=== PATIENT | male | born 1940 | race Caucasian/White ===

== ENCOUNTER 2018-03-03 06:29 | Inpatient (IN) | payer MEDICARE, SELFPAY ==
[2018-02-26 10:58] VITALS: BMI 25.1
[2018-03-03] VITALS (28 sets, daily range): BP systolic 107–199; BP diastolic 65–103; PULSE 80–98; RESP 10–20; TEMP 35.7–37.4; O2SAT 93–100; BMI 25.1
[2018-03-03] MEDS: LACTATED RINGERS 1,000 ML 42 ML IV ×3 (07:36→13:28)
--- NOTE | 2018-03-03 07:41 | P.HP_ITS ---
History of Present Illness Date Patient Seen: 03/03/18 Time Patient Seen: 07:35 Chief complaint: [id number] Narrative: 77-year-old male with mild pain in the back but severe pain primarily running down the left leg. It goes down the posterolateral leg and wraps around to the anterior mast to the ankle. He can walk 100 yd maximum. He also has weak in the left leg. The pain is severe and limits his ADLs. He has been through physical therapy, acupuncture, massage, chiropractic. An epidural injection helps some with the right leg pain temporarily but did not help the left at all. He has a history of 4 laminectomies in the past, most recently in 2011. Patient History Medical History Anxiety (Acute) Asthma (Acute) Diabetes (Acute) Diverticulosis (Acute) Meniere disease (Acute) Pneumonia (Acute) Testicular cancer (Acute) Surgical History History of major abdominal surgery (Acute) Hx of cholecystectomy (Acute) Hx of laminectomy (Acute) Hx of splenectomy (Acute) S/P cervical spinal fusion (Acute) Family & Social History Social History: household members spouse Prior Living Arrangements House Safety & Behavioral: Feels Safe in Current Yes Environment Suicidal Ideation Description None Suicide Plan Description No Plan Tobacco & Substance use: Tobacco type cigarettes Smoking Status Former smoker Smoking packs per day 1 alcohol intake current alcohol intake frequency 0-2 drinks per day Substance Use Type marijuana Meds Home Medications Medication Instructions Recorded Confirmed Type insulin detemir U-100 [Levemir 26 unit SUB-Q QAM #0 06/16/13 03/03/18 History FlexTouch U-100 Insuln] metformin [Glucophage XR] 500 mg PO TID #0 tab 06/16/13 03/03/18 History testosterone [AndroGel] 1.62 % TOPICAL Q DAY #0 06/16/13 02/26/18 History venlafaxine [Effexor XR] 75 mg PO QAM #0 cap 06/16/13 03/03/18 History allopurinol 100 mg PO DAILY 02/26/18 03/03/18 History ascorbic acid (vitamin C) [Vitamin 500 mg PO DAILY 02/26/18 03/03/18 History C] aspirin 81 mg PO DAILY 02/26/18 03/03/18 History colchicine 0.6 mg PO DAILY PRN 02/26/18 03/03/18 History ferrous sulfate [Iron (ferrous 325 mg PO DAILY 02/26/18 03/03/18 History sulfate)] insulin detemir U-100 [Levemir 36 unit SUB-Q QPM 02/26/18 03/03/18 History FlexTouch U-100 Insuln] insulin lispro [Humalog KwikPen 16 unit SUB-Q TID 02/26/18 03/03/18 History Insulin] lisinopril 10 mg PO DAILY 02/26/18 03/03/18 History oxycodone-acetaminophen [Percocet] 1 tab PO Q4-6H PRN 02/26/18 02/26/18 History trazodone 25 mg PO BEDTIME 02/26/18 03/03/18 History Allergies Allergy/AdvReac Type Severity Reaction Status Date / Time latex Allergy Severe Blister Verified 03/03/18 07:25 insulin glargine Allergy Intermediate Hives Verified 03/03/18 07:25 [From Lantus U-100 Insulin] lorazepam [LORAZEPAM] AdvReac Severe HULLCINATIONS Verified 03/03/18 07:25 I BROKE OUT OF A HOSPITAL ONCE ON IT Review of Systems Cardiovascular Cardiovascular: Denies chest pain Respiratory Respiratory: Denies cough Exam Vital Signs (past 8 hours): Vital Signs - 8 hr 3 03/03/18 07:29 Temperature 97.4 F L Pulse Rate 80 Respiratory Rate 16 Blood Pressure 186/77 H Pulse Oximetry 98 Pulse Oximetry 98 Oxygen Delivery Method Room Air Const Orientation: alert and oriented x3 Resp Auscultation: clear to auscultation bilaterally Cardio Rhythm: regular rhythm Back/Spine/Pelvis Other: 5/5 motor both lower extremities except 4/5 left anterior tibialis and EHL. Well healed previous incisions. Positive straight leg raise maneuver on the left. Tender left gluteals. Objective Imaging lumbar CT: My impression: From 12/18/17. Degenerative changes throughout the lumbar spine. Mild central stenosis L2-3. L3-4 severe central stenosis with moderate bilateral foraminal narrowing. L4-5 previous right-sided laminotomy, moderate to severe central stenosis, severe right and moderate left foraminal stenosis. L5-S1 previous right-sided laminotomy. Calcification of the posterior disc wall. Moderate central stenosis, severe bilateral foraminal stenosis. Assessment & Plan (1) Lumbar stenosis: Problem details: He has failed conservative management and is being admitted for surgical intervention. This is going to be a L3-4 laminectomy with revision laminectomies at L4-5 and L5-S1. This also will be an instrumented anterior/ posterior fusion with bone graft from L3 through S1 with XLIF at L3-5 and TLIF at L5S1. All questions have been answered and we will plan on surgery today. He is NPO. Current visit: Yes Status: Acute (2) History of lumbar laminectomy: Current visit: Yes Status: Acute
[2018-03-03] MEDS: CEFAZOLIN 2 GM/100 ML FROZ.PIGGY IV ×3 (07:47→19:18)
--- NOTE | 2018-03-03 08:00 | DI.RAD.S_ITS ---
PROCEDURE: XR LUMBAR SPINE 2-3V INDICATIONS: L3-4, L4-5 XLIF, L5-S1 TLIF TECHNIQUE: 2 views of the lumbar spine were acquired. COMPARISON: [facility], CR, XR LUMBAR SPINE FLEXION EXTENSION, 07/24/2017, 10:25. FINDINGS: Bones: AP and lateral intraoperative images were obtained showing evidence of discectomy at L3-4, L4-5 and L5-S1 with posterior fusion including transpedicular screws and vertical connecting rods bilaterally. Soft tissues: Numerous surgical clips overlies the abdomen. Overlying bowel gas pattern is normal. No suspicious soft tissue calcifications. IMPRESSION: Intraoperative documentation of multilevel discectomy and posterior fusion L3-S1. Dictated by: Bolivar Jc M.D. on 03/04/2018 at 8:30 Approved by: Bolivar Jc M.D. on 03/04/2018 at 8:32
--- NOTE | 2018-03-03 08:38 | SUR.OPER ---
Right lateral on padded OR table. Head on pillow, gel axillary roll, pillow to support left arm. Legs flexed, pillows between legs, gel pad under down leg and ankle. Multiple passes of 3 inch cloth tape across shoulder, hip, upper and lower legs to secure patient on OR table. THEN: Prone on spine table, head in foam head support, padded chest and pelvic supports, gel pad at knees, lower legs supported by pillows; nipples, genitalia and toes free of pressure, arms secured on foam padded arm boards at <90 degrees abduction. Tape over blanket at thigh secured to table.
[2018-03-03] MEDS: THROMBIN (BOVINE) 5,000 UNIT VIAL 5000 UNIT TOP (08:53)
[2018-03-03] MEDS: VANCOMYCIN 1,000 MG VIAL 1000 MG TOP (08:53)
[2018-03-03] MEDS: SODIUM CHLORIDE 0.9% 1,000 ML, GENTAMICIN 80 MG IRR (08:54)
[2018-03-03] MEDS: BUPIVACAINE 0.5% (PF) 4 ML, MORPHINE-PF 4 MG, BUTORPHANOL 1 MG, fentaNYL 100 MCG INJ (08:54)
--- NOTE | 2018-03-03 09:08 | SUR.OPER ---
FSBS WAS 108 PER GLUCOMETER TESTING @0904
--- NOTE | 2018-03-03 11:57 | SUR.OPER ---
glucose level checked at 1130 was 134
--- NOTE | 2018-03-03 13:34 | P.OP_ITS ---
Operative Date/Time/Diagnoses - Date of procedure: 03/03/18 Time of procedure: 13:22 Pre-op diagnosis: Lumbar stenosis with radiculopathy History of lumbar laminectomy Post-op diagnosis: same Procedure & Clinicians Procedure: L3-4, L4-5, L5-S1 revision laminectomies L3-4 and L4-5 anterior fusion with cage L3-4 and L4-5 posterior fusion L5-S1 TLIF (post/post innerbody fusion) with cage L3, L4, L5, S1 screws Iliac crest bone graft aspirate Use of microscope Placement of epidural catheter Same procedure as scheduled: Yes Indications: [age] year old male with intractable pain from spinal stenosis. They had failed conservative management and requested operative intervention. Risks and benefits of surgery were discussed and appropriate consents were obtained. Surgeon: Ravi Starkey Motorcycle Designer: Christina Corbin Anesthesia Type: General Operative Notes Findings: None Closure Type: primary Specimen(s): none sent Implants & Drains: Nuvasive XLIF cage Globus Rise cage Nuvasive Reline and MAS Reline screws Applied: catheter Estimated Blood Loss (mL): 150 Procedure in detail: Patient was brought to the operating room and intubated on the table. Time-out was performed. They were then rolled over to the lateral decubitus position with the [id number]. The table was bent and they were taped down in the correct position. X-rays were taken to confirm a true AP and lateral. Preoperative antibiotics were given. The left flank was prepped and draped in standard sterile fashion. Using fluoroscopy, a 3 cm incision was made above the iliac crest. We bluntly dissected down with Metzenbaum scissors and split the 3 abdominal muscle layers. We dissected out the retroperitoneal space and using finger guidance, brought our 1st dilator down to the psoas muscle. Using neuromonitoring and fluoroscopy, we placed it through the psoas onto the L4-5 disc space in an anterior position and gradually pulled the dilator posteriorly along the disc space. We placed our guidewire and measured our depth for the retractor. We then dilated with the next 2 dilators and then placed our retractor over the dilators. Position was confirmed with fluoroscopy and the retractor was locked down to the bar. We opened up the retractor and checked with neuro monitoring. We then placed the jerrod and again checked with neuro monitoring. The retractor was opened further and the ALL retractor was placed. An annulotomy was performed. We then performed a complete diskectomy with ring curette, pituitary, box osteotome. A Schofield was advanced across the disc space under fluoroscopy to release the lateral annulus on the opposite side. We then used sequentially larger trials and confirmed under fluoroscopy. An XLIF cage was packed with Osteocell bone graft and impacted into the L4-5 disc space with fluoroscopy for the anterior fusion at this level. The wound was irrigated. The retractor was closed down. The jerrod was removed. We carefully removed through a tractor with direct visualization to make sure there was no neurovascular or abdominal injury. Final x-rays were taken. We then moved up to the L3-4 space. Again using monitoring and dilators we placed our retractors over the disc space. We performed a complete diskectomy with lateral release of the annulus. We trialed and placed another XLIF cage packed with bone graft into the L3-4 interbody space for the anterior fusion at this level. The wound was irrigated. The retractor was carefully closed with direct visualization. Final x-rays were taken. The muscle fascia was closed, superficial tissue was closed. The skin was closed. Sterile dressing was placed. The patient was then rolled over on the well-padded prone position on the Hardy table. We excised his previous midline incision and extended approximately 3 cm cephalad. We dissected down the left sided paraspinal muscles to expose the lamina and confirmed our position. We then exposed the transverse processes. We then began placing our screws. A bur was used to decorticate the junction of the facet and transverse process. We then advanced a gear shifter down the pedicle using neuro monitoring. We checked with the ball probe to confirm a floor and 4 wilks on the pedicle. We then tapped also with neuro monitoring. We checked again with the ball probe and then placed our screw with neuro monitoring. The screws were placed in this fashion down the left pedicles of L3 , L4, L5, S1. X-rays were taken to confirm positioning. A temporary gena was placed at L5-S1. We then brought in the microscope. A revision laminectomy was performed at L5- S1, L4-5 as well as L3-4 with a bur and Kerrison rongeurs. I had not expected as much scar tissue at the L3-4 space but the previous surgery had completely coated the dura with scar through the majority of this level. Due to the extensive scarring, we could only decompress the left-hand side and could not go much past midline, but we did complete facetectomies at these levels to open up the neural foramen as well as completely open up the canal on this side. In the end the ball probe could be placed cephalad and caudally, just past the midline, and out through the neural foramen. The L5-S1 was a revision level with extensive scar dissection and hence was separate and distinct from the standard approach for the TLIF as there was much more work involved with this revision decompression. We then went down to the L5-S1 level. The disc space was prepped with bipolar. We had already performed our facetectomy for the decompression. The dura was carefully retracted medially. There is calcification across the posterior wall and we used an osteotome to break through the back of the disc. We then placed sequentially larger paddles to expand the disc but it did move very much. We then used Abelardo. We used curettes and pituitaries to confirm complete the diskectomy. The disc space was filled with Osteocell bone graft. We then took a globus Rise cage and placed it in the disc space and expanded under fluoroscopy. We then backfilled a little bit more bone graft. We measured and placed a gena and locked it down. The wound was copiously irrigated. A small stab incision was made over the PSIS and a Jamshidi needle was placed into the iliac crest and several mL of bone marrow was aspirated. This was mixed with our locally harvested bone graft as well as the remaining Osteocell and placed in the posterolateral gutter for fusion at L3-4, L4-5, and L5-S1. An epidural catheter was primed with 4mL of 0.5% bupivacaine, 100 mcg fentanyl, 4 mg Duramorph, 1 mg Stadol. The dura was depressed under the cephalad lamina with a ball probe and the epidural catheter was gently advanced 6 cm cephalad above L3-4. The fascia was then closed. The epidural was then injected without resistance. The catheter was pulled and we closed more over the fascia. Using fluoroscopy, another 10 cm incision was then made to the right. We used Bovie to come down to split the fascia. We then percutaneously placed Jamshidi needles down the right pedicles of L3, L4, L5, S1 using neuro monitoring and fluoro. These were switched out for guidewires. We tapped with monitoring and fluoro and then placed our screws. Another gena was placed and locked down. Final x-rays were taken. The wound was irrigated. The fascia was closed. Vancomycin powder was placed in the wounds. The superficial and skin were closed. Sterile dressing was placed. The patient was then rolled over, extubated, brought to the recovery room with no complications. Complications: none Condition: stable Disposition: PACU Plan for aftercare: Inpatient. Up with physical therapy.
--- NOTE | 2018-03-03 14:08 | SUR.PHASEI ---
oral airway removed
--- NOTE | 2018-03-03 14:11 | SUR.PHASEI ---
patient arrousing after surgery. able to move all extremities, motor and circulation intact thoughout, unable to test sensation
[2018-03-03] MEDS: HYDROMORPHONE 2 MG INJ 0.5 MG IV ×4 (14:20→15:25)
--- NOTE | 2018-03-03 14:36 | SUR.PHASEI ---
Patient combative while waking up. Dr Rajan notified. Versed 2mg iv given per verbal order.vss.
--- NOTE | 2018-03-03 15:02 | SUR.PHASEI ---
Patient remains very drowsy post versed. VSS and able to ween patient off or oxygen. Remains in PACU on continuous monitoring due to drowsiness.
--- NOTE | 2018-03-03 15:36 | SUR.PHASEI ---
patient with trending htn. Dr. Rajan has left for day. rn call center anesthesia Dr. Nicole notified. awaiting order for labetalol and fentanyl.
[2018-03-03] MEDS: LABETALOL 20 MG/4 ML SYRINGE 5 MG IV ×2 (15:42→16:19)
--- NOTE | 2018-03-03 16:51 | SUR.PHASEI ---
patient transfered to ICU d\t continued AMS post op. Dr. Starkey has been to patient for assesment. Jasmyn RN informed of continued HTN, AMS, and continued patient discomfort. Pt vitals have remained stable, patient moving all extremities, follows command squeeze hands but non verbal. surgical dressings remain clean dry and intact upon transfer. pt to rm 106 via bed on tele monitor and 2L 02 via NC.
--- NOTE | 2018-03-03 16:52 | PC.NURSE ---
Addendum entered by Stephanie Cohen R.N. 03/03/18 21:48: 2148 - Patient now awake and talking appropriately. Remains groggy, but states that he would like to take a pain pill. Safely given a drink of water and then a pain pill. Original Note: Addendum entered by Stephanie Cohen R.N. 03/03/18 21:24: 2120 - Patient more alert when spoken to. Able to wake up and make eye contact. States that he is in the hospital for back surgery. Able to safely take a drink of water, but quickly falls back asleep. Held medications for aspiration risk as patient cannot stay awake. Sleeping peacefully with even, unlabored breathing. Original Note: 1641 - Patient brought to room from PACU. Patient very groggy and not speaking, but moves all extremities. Dressing to mid back C/D/I with small spot of sanguinous drainage noted to bottom of dressing. Left flank dressing C/D/I. 98% on 2L O2. at bedside.
[2018-03-03] MEDS: LACTATED RINGERS 1,000 ML 125 ML IV (17:12)
[2018-03-03] MEDS: INSULIN DETEMIR 100 UNIT/ML INSULN.PEN 36 UNIT SUBCUT (17:42)
[2018-03-03] MEDS: OXYCODONE/ACETAMINOPHEN 5/325 TABLET 1 TAB PO (21:45)
[2018-03-03] MEDS: TRAZODONE 50 MG TABLET 25 MG PO (23:48)
[2018-03-03] MEDS: HYDROMORPHONE 0.5 MG INJ 0.2 MG IV (23:49)
[2018-03-04] VITALS (17 sets, daily range): BP systolic 118–154; BP diastolic 59–79; PULSE 78–101; RESP 14–20; TEMP 36.4–37.4; O2SAT 94–100
[2018-03-04] MEDS: LACTATED RINGERS 1,000 ML 125 ML IV (01:41)
[2018-03-04] MEDS: OXYCODONE/ACETAMINOPHEN 5/325 TABLET 2 TAB PO ×4 (02:35→17:19)
[2018-03-04] MEDS: CEFAZOLIN 2 GM/100 ML FROZ.PIGGY IV (03:10)
[2018-03-04] MEDS: HYDROMORPHONE 0.5 MG INJ 0.2 MG IV (03:10)
--- NOTE | 2018-03-04 05:08 | PC.NURSE ---
NOC Shift: Pt AAOx3 at beginning of shift, restless and anxious due to pain. Complaining of bladder pain and needing to urinate as he is pulling on steen catheter, explained to pt what catheter is, he states he knows what it is and wants it out. Attempted to advance catheter w/o success pt w/extreme pain steen catheter removed, will monitor. Pain subsided with steen out. Complains of back, left flank pain re: incisional pain 6/10 ice bags placed to sites, IV Diluadid given and PM trazadone given. Pt taking po w/o difficulty. VSS, ST on tele. Pt instructed w/IS at bedside and pt using appropriately. at bedside for comfort.
[2018-03-04 05:30] LABS: Hematocrit 33.7 % (41-53); Hemoglobin 11.2 g/dL (13.5-17.5)
[2018-03-04 05:34] LABS: Blood Urea Nitrogen 18 mg/dL (9-20); Calcium 8.4 mg/dL (8.4-10.2); Carbon Dioxide 30 mmol/L (22-32); Chloride 101 mmol/L (98-107); Estimated Glomerular Filt Rate > 60.0 mL/min (>60); Glucose 163 mg/dL (80-110); HEMOLYSIS < 15 (0-50); Potassium 4.3 mmol/L (3.4-5.1); Sodium 137 mmol/L (137-145)
[2018-03-04] MEDS: OXYCODONE/ACETAMINOPHEN 5/325 TABLET 1 TAB PO (07:05)
[2018-03-04] MEDS: hydrOXYzine pamoate 25 MG CAPSULE PO ×3 (07:05→17:19)
--- NOTE | 2018-03-04 07:34 | PM.PNPO.1 ---
Subjective Date Patient Seen: 03/04/18 Time Patient Seen: 07:34 Interval history: He was in the ICU overnight as trying to get his pain under control in the recovery room required over sedation and he was felt he would need more intensive monitoring as he was sensitive to the pain medication. Very rough night with pain control. Was over sedated and somewhat confused for a while but that seems to have calmed down. His catheter was removed last night. At this point he is complaining of strong burning pain mostly along the left side. No leg pain. Exam Vital Signs (past 8 hours): Vital Signs - 8 hr 03/03/18 23:46 03/04/18 00:00 03/04/18 00:24 Temperature 99.3 F 98.7 F Pulse Rate 96 H 100 H Respiratory Rate 20 18 Blood Pressure 147/97 H 138/61 H Pulse Oximetry 97 98 94 03/04/18 01:00 03/04/18 02:00 03/04/18 02:35 Temperature 99.2 F 99.2 F Pulse Rate 101 H 100 H Respiratory Rate 15 20 Blood Pressure 132/64 H 141/75 H Pulse Oximetry 95 100 03/04/18 03:00 03/04/18 04:00 03/04/18 04:53 Temperature 98.2 F Pulse Rate 94 H 98 H Respiratory Rate 17 20 Blood Pressure 149/79 H 118/59 L Pulse Oximetry 95 96 94 03/04/18 05:00 03/04/18 06:00 03/04/18 07:24 Temperature 98.1 F Pulse Rate 96 H 99 H 89 Respiratory Rate 14 18 18 Blood Pressure 122/59 H 141/64 H Pulse Oximetry 95 96 Pulse Oximetry 96 Oxygen Delivery Method Room Air Oxygen Flow Rate 1 Const Orientation: alert and oriented x3 Back/Spine/Pelvis Other: Posterior dressing moderate saturation. Lateral dressing clean dry intact. 5/5 motor both lower extremities. Objective Labs Result Diagrams: 03/04/18 04:35 03/04/18 04:35 Labs: Laboratory Results - last 24 hr 03/04/18 03/04/18 04:35 04:35 Hgb 11.2 L Hct 33.7 L Sodium 137 Potassium 4.3 Chloride 101 Carbon Dioxide 30 BUN 18 Creatinine 1.00 Estimated GFR > 60.0 BUN/Creatinine Ratio 18.0 Glucose 163 H Calcium 8.4 Assessment & Plan Post-op Postoperative Procedures Operation Date: 03/03/18 07:45 Actual Procedures Side Surgeon p L4-L5, L5-S1 revision laminectomies, L3-S1 anterior/ posterior instrumented fusion with bone graft Ravi Starkey MD he had a rough night but things seem to be calming down. Still significant pain and that will be an issue to control over the next few days. He is stable to transfer to the floor. We will get him up with Physical therapy and mobilized. Time Spent With Patient less than 15 minutes Quality VTE Deep Vein Thrombosis/Pulmonary Embolism Present on Admission: No
--- NOTE | 2018-03-04 07:37 | P.PN_ITS ---
Subjective Date Patient Seen: 03/04/18 Time Patient Seen: 07:34 Interval history: He was in the ICU overnight as trying to get his pain under control in the recovery room required over sedation and he was felt he would need more intensive monitoring as he was sensitive to the pain medication. Very rough night with pain control. Was over sedated and somewhat confused for a while but that seems to have calmed down. His catheter was removed last night. At this point he is complaining of strong burning pain mostly along the left side. No leg pain. Exam Vital Signs (past 8 hours): Vital Signs - 8 hr 3 03/03/18 23:46 03/04/18 00:00 03/04/18 00:24 Temperature 99.3 F 98.7 F Pulse Rate 96 H 100 H Respiratory Rate 20 18 Blood Pressure 147/97 H 138/61 H Pulse Oximetry 97 98 94 3 03/04/18 01:00 03/04/18 02:00 03/04/18 02:35 Temperature 99.2 F 99.2 F Pulse Rate 101 H 100 H Respiratory Rate 15 20 Blood Pressure 132/64 H 141/75 H Pulse Oximetry 95 100 3 03/04/18 03:00 03/04/18 04:00 03/04/18 04:53 Temperature 98.2 F Pulse Rate 94 H 98 H Respiratory Rate 17 20 Blood Pressure 149/79 H 118/59 L Pulse Oximetry 95 96 94 3 03/04/18 05:00 03/04/18 06:00 03/04/18 07:24 Temperature 98.1 F Pulse Rate 96 H 99 H 89 Respiratory Rate 14 18 18 Blood Pressure 122/59 H 141/64 H Pulse Oximetry 95 96 Pulse Oximetry 96 Oxygen Delivery Method Room Air Oxygen Flow Rate 1 Const Orientation: alert and oriented x3 Back/Spine/Pelvis Other: Posterior dressing moderate saturation. Lateral dressing clean dry intact. 5/5 motor both lower extremities. Objective Labs Result Diagrams: 03/04/18 04:35 03/04/18 04:35 Labs: Laboratory Results - last 24 hr 03/04/18 03/04/18 04:35 04:35 Hgb 11.2 L Hct 33.7 L Sodium 137 Potassium 4.3 Chloride 101 Carbon Dioxide 30 BUN 18 Creatinine 1.00 Estimated GFR > 60.0 BUN/Creatinine Ratio 18.0 Glucose 163 H Calcium 8.4 Assessment & Plan Post-op Postoperative Procedures Operation Date: 03/03/18 07:45 Actual Procedures Side Surgeon p L4-L5, L5-S1 revision laminectomies, L3-S1 anterior/ posterior instrumented fusion with bone graft Ravi Starkey MD he had a rough night but things seem to be calming down. Still significant pain and that will be an issue to control over the next few days. He is stable to transfer to the floor. We will get him up with Physical therapy and mobilized. Time Spent With Patient less than 15 minutes Quality VTE Deep Vein Thrombosis/Pulmonary Embolism Present on Admission: No
[2018-03-04] MEDS: INSULIN ASPART 100 UNIT/ML INSULN PEN SUBCUT ×3 (08:29→17:20)
[2018-03-04] MEDS: ALLOPURINOL 100 MG TABLET PO (08:30)
[2018-03-04] MEDS: CELECOXIB 200 MG CAPSULE PO ×2 (08:31→20:14)
[2018-03-04] MEDS: ASCORBIC ACID 500 MG TABLET PO (08:31)
[2018-03-04] MEDS: DOCUSATE 100 MG CAPSULE PO ×2 (08:31→20:15)
[2018-03-04] MEDS: ASPIRIN EC 81 MG TABLET PO (08:31)
[2018-03-04] MEDS: INSULIN DETEMIR 100 UNIT/ML INSULN.PEN 26 UNIT SUBCUT (08:32)
[2018-03-04] MEDS: FERROUS SULFATE 325 MG TABLET PO (08:32)
[2018-03-04] MEDS: METFORMIN XR 500 MG TABLET PO ×3 (08:34→20:14)
[2018-03-04] MEDS: LISINOPRIL 10 MG TABLET PO (08:34)
[2018-03-04] MEDS: VENLAFAXINE ER 75 MG CAP PO (08:34)
--- NOTE | 2018-03-04 11:44 | PT.IIE ---
Current Diagnoses Spinal stenosis, lumbar region without neurogenic claudication (03/03/18) Spinal stenosis, lumbar region with neurogenic claudication (03/03/18) Radiculopathy, lumbosacral region (03/03/18) Other specified postprocedural states (03/03/18) Surgery Performed Operation Date: 03/03/18 07:45 Actual Procedures p L4-L5, L5-S1 revision laminectomies, L3-S1 anterior/ posterior instrumented fusion with bone graft - Ravi Starkey MD Surgical History (Last Updated 02/26/18 @ 11:27 by Sarah Levine RN) History of major abdominal surgery (Acute) Hx of cholecystectomy (Acute) Hx of laminectomy (Acute) Hx of splenectomy (Acute) S/P cervical spinal fusion (Acute) Medical History (Last Updated 02/26/18 @ 11:27 by Sarah Levine RN) Anxiety (Acute) Asthma (Acute) Diabetes (Acute) Diverticulosis (Acute) Meniere disease (Acute) Pneumonia (Acute) Testicular cancer (Acute) Physical Therapy Inpatient Evaluation/Re-Eval M1 PT/OT-IP Prior Functional Status Start: 03/04/18 11:28 Freq: NEEDED Status: Active Protocol: Document 03/04/18 11:30 AB (Rec: 03/04/18 11:44 AB [id number]) Medical Review Prior Functional Status Medical History Reviewed Yes Mobility and Gait pt stated that he is modified independent with all mobilities and ambulation without AD but unable to ambulate far. Social History Household Members spouse Living Arrangements House Number of Floors (Floors) Two Floors Number of Stairs To Enter/Railing? has 3 steps coming from the garage with bilateral wide rails and can only hold on to one rail at a time. Pt stays on main level of the house Home Environment Standard Height Toilet Walk in Shower Built-In Shower Seat Home Equipment Straight Cane Grab Bars In Shower Employment Status Retired M2 PT-IP Current Condition Start: 03/04/18 11:28 Freq: NEEDED Status: Active Protocol: Document 03/04/18 11:30 AB (Rec: 03/04/18 11:44 AB [id number]) Physical Therapy Current Condition Current Condition Evaluation Date 03/04/18 Treatment Diagnosis s/p revision laminectomy and TLIF; difficulty in walking Onset Date 03/03/18 Precautions Lumbar Precautions Log Roll No Twisting Limit Bending Lifting Restriction of 10 lbs Gait Belt above Incisional Area M3 PT-IP Subjective Start: 03/04/18 11:28 Freq: NEEDED Status: Active Protocol: Document 03/04/18 11:30 AB (Rec: 03/04/18 11:44 AB [id number]) Subjective Physical Therapy Visit Type Type Initial Evaluation Visit Start Time 10:40 Visit Stop Time 11:23 Total Visit Minutes 43 Number of 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 0 Physical Therapy Visit Comments Patient Comments pt agreeable to do therapy Therapy Pain Assessment Pain When Pain Assessed At Rest Pain Present Pain Present Pain Reported Location back Intensity 10 Scale Used Numeric (1 - 10) Description Burning Pain Management Techniques Apply Cold Re-positioning M4 PT-IP Mobility and Gait Start: 03/04/18 11:28 Freq: NEEDED Status: Active Protocol: Document 03/04/18 11:30 AB (Rec: 03/04/18 11:44 AB [id number]) PT-Bed Mobility Assessment Rolling Level of Assist Maximal Assistance Supine to Sit Supine to Sit Moderate Assistance PT-Transfer Assessment Sit to and From Stand Sit to and from Stand Moderate Assistance Equipment Transfer Assistive Device Gait Belt Front Wheeled Walker Gait Assessment Gait Gait Assistance Required: Moderate Assistance Distance (Feet) (feet) 25 Able to Maintain Weight Bearing Status Yes During Gait Assistive Devices Assistive Device Gait Belt Front Wheeled Walker Orthotic/Prosthetic Devices or Brace: No Gait Deviations General Gait Pattern Decreased Stride Length Decreased Feet Clearance Factors Limiting Gait Function Factors Limiting Gait Function Decreased Activity Tolerance Decreased Strength Pain Poor Balance Poor Safety Awareness Comments Gait Comments pt requires cues during mobility and seems to have some difficulty following instructions. pt stated it is because of the pain. PT-Balance Assessment Sitting Balance and Reactions Static Sitting Balance Ability Good Dynamic Sitting Balance Ability Good Standing Balance and Reactions Static Standing Balance Ability Fair Dynamic Standing Balance Ability Fair M5 PT-IP Objective Assessments Start: 03/04/18 11:28 Freq: NEEDED Status: Active Protocol: Document 03/04/18 11:30 AB (Rec: 03/04/18 11:44 AB [id number]) Orientation Orientation/Cognition Level of Alertness Alert Orientation Name Age Place Situation Safety Awareness Decreased Safety Awareness Gross Range of Motion Lower Extremity ROM Assessment Within Functional Limits Strength Lower Extremity Strength Assessment Bilaterally Impaired Hip 4-/5 Knee 4-/5 Ankle 5/5 M6 PT-IP Treatment Start: 03/04/18 11:28 Freq: NEEDED Status: Active Protocol: Document 03/04/18 11:30 AB (Rec: 03/04/18 11:44 AB [id number]) Physical Therapy Treatment Education Education Provided Precautions Weight Bearing Status Post-Op Packet Safety M7 PT-IP Assessment and Plan Start: 03/04/18 11:28 Freq: NEEDED Status: Active Protocol: Document 03/04/18 11:30 AB (Rec: 03/04/18 11:44 AB [id number]) PT Summary Assessment and Plan Potential Rehabilitation Potential Fair Status of Condition at Evaluation Evolving Summary Impairments Pain ROM Strength Balance Cognition Bed Mobility Transfers Gait Activity Tolerance Assessment Summary pt requiring mod A with mobility and unable to tolerate much activity due to c/o increase pain. pt will have spouse to assist him at home. caregiver training and stair training will be conducted prior to d/c. Goals Bed Mobility Goal Standby Assistance Transfer Goal Standby Assistance Gait Goal Standby Assistance Gait Distance 100 Other Goals up/down 3 steps with 1 rail SBA Days to Meet Goals 3 Frequency of Treatment Frequency Of Treatment Twice a Day Treatment Plan Physical Therapy Treatment Plan Bed Mobility Training Transfer Training Gait Training Therapeutic Exercise Balance Retraining Post Op Education Discharge Planning Hot or Cold Pack Neuromuscular Re-ed Coordination Retraining Manual Therapy Other Recommendations and Next Treatment ambulation, bed mobility Focus Recommendations To Nursing Amount of Assist Needed 1 Person Assist Discharge Recommendations PT Discharge Recommendations Home with Assistance Equipment Needed for Home Before FWW: spouse stated that she Discharge can get one for pt Provider Visit Care Team Role Provider Type Kyleigh Burrell MD Family Provider Non-Staff Primary Care Provider Specialty: Medical Ravi Starkey MD Admit Provider Physician Attending Provider Specialty: Orthopedic Surgery
[2018-03-04] MEDS: diphenhydrAMINE 25 MG TABLET PO (14:29)
--- NOTE | 2018-03-04 14:44 | PC.NURSE ---
Day Shift Note Pt calm and cooperative, following commands. Up one person assist with FWW, CMS + to BLEs. Reports pain to left side and lower back 7/10; medicated with Percocet and vistaril. Dressing to lower back changed at 0830 per MD order - old dressing was saturated with serosanguinous drainage. Incision edges well-approximated with no erythema noted. New dressing placed and C/D/I. Voiding without issue into BSC. Reported itching/discomfort to back that was in contact with sheets, erythemic, repositioned and Benadryl 1 capsule administered. Call light within reach, using appropriately to make needs known.
--- NOTE | 2018-03-04 15:52 | OT.IP.EVAL ---
Current Diagnoses Spinal stenosis, lumbar region without neurogenic claudication (03/03/18) Spinal stenosis, lumbar region with neurogenic claudication (03/03/18) Radiculopathy, lumbosacral region (03/03/18) Other specified postprocedural states (03/03/18) Surgery Performed Operation Date: 03/03/18 07:45 Actual Procedures p L4-L5, L5-S1 revision laminectomies, L3-S1 anterior/ posterior instrumented fusion with bone graft - Ravi Starkey MD Past Medical History (Last Updated 02/26/18 @ 11:27 by Sarah Levine RN) Anxiety (Acute) Asthma (Acute) Diabetes (Acute) Diverticulosis (Acute) Meniere disease (Acute) Pneumonia (Acute) Testicular cancer (Acute) Surgical History (Last Updated 02/26/18 @ 11:27 by Sarah Levine RN) History of major abdominal surgery (Acute) Hx of cholecystectomy (Acute) Hx of laminectomy (Acute) Hx of splenectomy (Acute) S/P cervical spinal fusion (Acute) Occupational Therapy Inpatient Evaluation/Re-Eval M1 PT/OT-IP Prior Functional Status Start: 03/04/18 15:32 Freq: NEEDED Status: Active Protocol: Document 03/04/18 15:32 [email or web address] (Rec: 03/04/18 15:52 PJM [id number]) Medical Review Prior Functional Status Medical History Reviewed Yes Communication WFL Mobility and Gait pt stated that he is modified independent with all mobilities and ambulation without AD but unable to ambulate far. Activities of Daily Living and IADL's Pt was indep with self care; enjoys gardening and boating. He drives when feeling well Prior Functional Level (Other details) does all IADLS. Social History Household Members spouse Living Arrangements House Number of Floors (Floors) Two Floors Number of Stairs To Enter/Railing? has 3 steps coming from the garage with bilateral wide rails and can only hold on to one rail at a time. Pt stays on main level of the house Home Environment Standard Height Toilet Walk in Shower Built-In Shower Seat Home Equipment Straight Cane Long Handled Shoe Horn Grab Bars In Shower Employment Status Retired Additional Social History Comment can provide 24 hr assist at d/c. will obtain experience specialist and long bath songe for pt. Will provide sock aid to pt. M2 OT-IP Current Condition Start: 03/04/18 15:32 Freq: Status: Active Protocol: Document 03/04/18 15:32 PJM (Rec: 03/04/18 15:52 [facility] [id number]) Occupational Therapy Current Condition Current Condition Evaluation Date 03/04/18 Treatment Diagnosis decreased self care, functional mobility s/p multi level lumbar fusion Post Operative Precautions Lumbar Precautions Log Roll No Twisting Limit Bending Lifting Restriction of 10 lbs Gait Belt above Incisional Area M3 OT- IP Subjective and Pain Start: 03/04/18 15:32 Freq: Status: Active Protocol: Document 03/04/18 15:32 PJM (Rec: 03/04/18 15:52 [facility] [id number]) OT- Subjective Occupational Therapy Visit Type Type Initial Evaluation Visit Start Time 12:45 Visit Stop Time 13:13 Total Visit Minutes 28 Notes Pt's observing this session. Occupational Therapy Visit Comments Patient Comments How do I use this thing? ( incentive spirometer) Patient/Caregiver Goals to go home, be able to garden and use my power boat OT Pain Assessment Pain When Pain Assessed After Treatment Pain Present Pain Present Pain Reported Location back Intensity 6 Scale Used Numeric (1 - 10) Description Aching Pain Behaviors Guarding Management Techniques Re-positioning Timing of Activity with Medications M4 OT- IP ADL's Start: 03/04/18 15:32 Freq: Status: Active Protocol: Document 03/04/18 15:32 PJM (Rec: 03/04/18 15:52 [facility] [id number]) OT MVQ-Dfah-Cazvuqy General Evaluation Self-Feeding Ability Independent OT ADL-Grooming General Evaluation Grooming Ability Standby Assistance Comments OT Grooming Comments seated in chair after set up OT ADL-Oral Care General Eval Oral Care Ability Standby Assistance Comments Oral Care Comments seated in chair after set up OT ADL-Dressing General Eval Lower Body Dressing Ability Maximum Assistance Comments OT Dressing Comments Began education re: lumbar spine precautions during lower body dressing with demo of experience specialist, sock aid, long shoe horn and optimal clothing choices. OT ADL-Toileting Comments OT Toileting Comments did not occur this session OT ADL-Bathing Comments OT Bathing Comments to be assessed as activity tolerance improves M5 OT- IP IADL's Start: 03/04/18 15:32 Freq: Status: Active Protocol: Document 03/04/18 15:32 PJM (Rec: 03/04/18 15:52 [facility] [id number]) OT-Instrumental Activities of Daily Living Deficits IADL Deficits Identified Deficits Home Safety Awareness Awareness of Need for Assistance at Home Good Awareness Medication Management Medication Management Caregiver Provides Supervision Meal Preparation Meal Preparation Caregiver Provides Assist Concert Pianist Concert Pianist Caregiver Provides Assist Driving Driving Caregiver Provides Assist M6 OT- IP Functional Cognition Start: 03/04/18 15:32 Freq: Status: Active Protocol: Document 03/04/18 15:32 PJM (Rec: 03/04/18 15:52 [facility] [id number]) Cognitive Factors Limiting Selfcare Function Cognitive Ability Level of Alertness Alert Ability to Follow Commands Able to Follow One Step Commands Memory Description Immediate Impaired Safety Awareness Decreased Recall of Precautions Cognitive Comments Cognitive Assessment Comments Pt appears to have slowed speed of processing this session, suspect due to pain meds. He required multiple repetition of instructions for use of incentive spirometer with decreased attention/ concentration noted. reports she is very familiar with lumbar spine precautions as pt has had 4 previous lumbar surgeries. OT- Vision and Hearing OT- Hearing Assessment OT- Hearing Assessment WFL OT- Vision Assessment Visual Acuity WFL Vision Assessment Comments Pt denies any recent changes. M8 OT- IP Objective Assessments Start: 03/04/18 15:32 Freq: Status: Active Protocol: Document 03/04/18 15:32 PJM (Rec: 03/04/18 15:52 [facility] [id number]) OT Gross Range of Motion Upper Extremity Range of Motion Assessment Within Functional Limits OT Strength Upper Extremity Strength Assessment Within Functional Limits OT- Coordination Assessment Comments Coordination Comments BUE WFL OT-Muscle Tone Assessment Muscle Tone WNL Yes OT Sensation Assessment Comments Summary Comments Pt denies deficits in BUE's M9 OT- IP Assessment and Plan Start: 03/04/18 15:32 Freq: Status: Active Protocol: Document 03/04/18 15:32 PJM (Rec: 03/04/18 15:52 [facility] [id number]) OT Summary Assessment and Plan Potential Rehabilitation Potential Good Analytic Complexity at Evaluation Low Summary OT Impairments Pain Functional Mobility Dressing Toileting Bathing Toilet Transfers Shower Transfers Assessment Summary Low complexity OT assessment completed with emphasis on self care skills within lumbar spine precautions. Pt has performance deficits in attention/concentration likely due to pain meds, functional mobility/transfers, lower body dressing, bathing, toileting. Pt will benefit from 1-2 additional OT visits to address goals below. Goals Grooming Goal Independent Dressing Goal Standby Assistance Long Handled Shoe Horn Machine Shop Helper Sock Aid Toileting Goal Independent Bathing Goal Standby Assistance Toilet Transfer Goal Standby Assistance Shower Transfer Goal Standby Assistance Patient/Caregiver Education Goal Demonstrate Post-Op Precautions Caregiver Independent Assisting Patient Days to Meet Goals 2 Frequency of Treatment Frequency Of Treatment Once a Day Treatment Plan OT Treatment Plan ADL Training Functional Mobility Patient/Family Education Discharge Planning Other Treatment Recommendations and Next bring sock aid, toilet tongs Treatment Focus Discharge Recommendations OT Discharge Recommendations Home with 07/04 Assist Home Equipment Needs to obtain experience specialist and long bath sponge for pt
--- NOTE | 2018-03-04 16:05 | CM.DANOTE ---
DCP Assessment:Pt is a 77 yo male, resident of [place], [place]. Pt admitted for a scheduled spinal surgery w/Dr Starkey. Pt's PCP is Dr Burrell; Insurance is Medicare/[facility]. Pt transferred to ICU after his surgery d/t increased confusion and agitation post operatively. Met w/pt and his Madhuri this afternoon, explained role. Pt/spouse very pleasant and explain pt/spouse live on [place], indp and active at baseline. Pt expects to DC back home w/assist from his , dtr and TIFFANI. PT expecting pt to DC home also. Following closely in case DC needs or concerns arise. PARRISH Gordillo
--- NOTE | 2018-03-04 16:53 | PT.IPTN ---
Current Diagnoses Spinal stenosis, lumbar region without neurogenic claudication (03/03/18) Spinal stenosis, lumbar region with neurogenic claudication (03/03/18) Radiculopathy, lumbosacral region (03/03/18) Other specified postprocedural states (03/03/18) Surgery Performed Operation Date: 03/03/18 07:45 Actual Procedures p L4-L5, L5-S1 revision laminectomies, L3-S1 anterior/ posterior instrumented fusion with bone graft - Ravi Starkey MD Physical Therapy Treatment Note M2 PT-IP Current Condition Start: 03/04/18 11:28 Freq: NEEDED Status: Active Protocol: Document 03/04/18 11:30 AB (Rec: 03/04/18 11:44 AB [id number]) Physical Therapy Current Condition Current Condition Evaluation Date 03/04/18 Treatment Diagnosis s/p revision laminectomy and TLIF; difficulty in walking Onset Date 03/03/18 Precautions Lumbar Precautions Log Roll No Twisting Limit Bending Lifting Restriction of 10 lbs Gait Belt above Incisional Area M3 PT-IP Subjective Start: 03/04/18 11:28 Freq: NEEDED Status: Active Protocol: Document 03/04/18 16:49 AB (Rec: 03/04/18 16:53 AB [id number]) Subjective Physical Therapy Visit Type Type Treatment Note Visit Start Time 13:05 Visit Stop Time 13:20 Total Visit Minutes 15 Number of WAREHOUSE TRAINER Visits 0 Physical Therapy Visit Comments Patient Comments pt requesting to go back to bed Therapy Pain Assessment Pain When Pain Assessed At Rest Pain Present Pain Present Pain Reported Location back Intensity 7 Scale Used Numeric (1 - 10) Pain Management Techniques Re-positioning Timing of Activity with Medications M4 PT-IP Mobility and Gait Start: 03/04/18 11:28 Freq: NEEDED Status: Active Protocol: Document 03/04/18 16:49 AB (Rec: 03/04/18 16:53 AB [id number]) PT-Bed Mobility Assessment Rolling Type of Rolling Log Rolling Level of Assist Minimal Assistance Sit to Supine Sit to Supine Minimal Assistance PT-Transfer Assessment Sit to and From Stand Sit to and from Stand Minimal Assistance Equipment Transfer Assistive Device Gait Belt Front Wheeled Walker Gait Assessment Gait Gait Assistance Required: Minimum Assistance Distance (Feet) (feet) 35 Able to Maintain Weight Bearing Status Yes During Gait Assistive Devices Assistive Device Gait Belt Front Wheeled Walker Orthotic/Prosthetic Devices or Brace: No Gait Deviations General Gait Pattern Decreased Stride Length Decreased Feet Clearance Factors Limiting Gait Function Factors Limiting Gait Function Decreased Activity Tolerance Decreased Strength Pain Poor Balance Poor Safety Awareness Comments Gait Comments pt presents with unsteady gait especially with turns requiring min A and cues for safety. M5 PT-IP Objective Assessments Start: 03/04/18 11:28 Freq: NEEDED Status: Active Protocol: Document 03/04/18 11:30 AB (Rec: 03/04/18 11:44 AB [id number]) Orientation Orientation/Cognition Level of Alertness Alert Orientation Name Age Place Situation Safety Awareness Decreased Safety Awareness Gross Range of Motion Lower Extremity ROM Assessment Within Functional Limits Strength Lower Extremity Strength Assessment Bilaterally Impaired Hip 4-/5 Knee 4-/5 Ankle 5/5 M6 PT-IP Treatment Start: 03/04/18 11:28 Freq: NEEDED Status: Active Protocol: Document 03/04/18 16:49 AB (Rec: 03/04/18 16:53 AB [id number]) Physical Therapy Treatment Education Education Provided Precautions Safety M7 PT-IP Assessment and Plan Start: 03/04/18 11:28 Freq: NEEDED Status: Active Protocol: Document 03/04/18 16:49 AB (Rec: 03/04/18 16:53 AB [id number]) PT Summary Assessment and Plan Potential Rehabilitation Potential Fair Summary Impairments Pain ROM Strength Balance Coordination Sensation Tone Cognition Bed Mobility Transfers Gait Activity Tolerance Progress Towards Goals Slow Progress due to Pain Slow Progress due to Activity Tolerance Assessment Summary pt requires one person assist with mobility. will conduct caregiver training next tx session. Goals Bed Mobility Goal Standby Assistance Transfer Goal Standby Assistance Gait Goal Standby Assistance Gait Distance 100 Other Goals up/down 3 steps with 1 rail SBA Days to Meet Goals 3 Frequency of Treatment Frequency Of Treatment Twice a Day Treatment Plan Physical Therapy Treatment Plan Bed Mobility Training Transfer Training Gait Training Therapeutic Exercise Balance Retraining Post Op Education Discharge Planning Hot or Cold Pack Neuromuscular Re-ed Coordination Retraining Manual Therapy Other Recommendations and Next Treatment ambulation, bed mobility, Focus caregiver training Recommendations To Nursing Amount of Assist Needed 1 Person Assist Discharge Recommendations PT Discharge Recommendations Home with Assistance Equipment Needed for Home Before FWW: spouse stated that she Discharge can get one for pt
[2018-03-04] MEDS: INSULIN DETEMIR 100 UNIT/ML INSULN.PEN 36 UNIT SUBCUT (17:20)
[2018-03-04] MEDS: hydrOXYzine pamoate 25 MG CAPSULE 50 MG PO (20:14)
[2018-03-04] MEDS: SENNOSIDES 8.6 MG TABLET 17.2 MG PO (20:14)
[2018-03-04] MEDS: TRAZODONE 50 MG TABLET 25 MG PO (20:15)
[2018-03-04] MEDS: OXYCODONE IR 10 MG TABLET PO ×2 (20:22→23:46)
[2018-03-05] VITALS (9 sets, daily range): BP systolic 114–152; BP diastolic 60–86; PULSE 81–92; RESP 16–18; TEMP 36.6–36.8; O2SAT 94–99
[2018-03-05] MEDS: OXYCODONE IR 10 MG TABLET PO ×5 (02:45→20:26)
[2018-03-05] MEDS: hydrOXYzine pamoate 25 MG CAPSULE 50 MG PO (02:48)
--- NOTE | 2018-03-05 08:03 | P.PN_ITS ---
Subjective Date Patient Seen: 03/05/18 Time Patient Seen: 08:01 Interval history: He had a much better night and was more comfortable but his pain is still about 8/10. Able to get up and walk with assistance and a walker. Still getting some burning pain in the front of the left thigh. Exam Vital Signs (past 8 hours): Vital Signs - 8 hr 3 03/05/18 06:00 Temperature 98.3 F Pulse Rate 81 Respiratory Rate 16 Blood Pressure 123/63 H Pulse Oximetry 96 Pulse Oximetry 96 Oxygen Delivery Method Room Air Oxygen Flow Rate 0 Back/Spine/Pelvis Other: Dressing CDI. 5/5 motor both lower extremities Objective Labs Result Diagrams: 03/04/18 04:35 03/04/18 04:35 Assessment & Plan Post-op Postoperative Procedures Operation Date: 03/03/18 07:45 Actual Procedures Side Surgeon p L4-L5, L5-S1 revision laminectomies, L3-S1 anterior/ posterior instrumented fusion with bone graft Ravi Starkey MD he is doing better. Continue to mobilize with physical therapy. He is in the ICU for staffing purposes but is no longer a critical care patient and just needs to be in standard acute care. Probable discharge home tomorrow. Time Spent With Patient less than 15 minutes Quality VTE Deep Vein Thrombosis/Pulmonary Embolism Present on Admission: No
[2018-03-05] MEDS: METFORMIN XR 500 MG TABLET PO ×2 (08:04→20:26)
[2018-03-05] MEDS: ALLOPURINOL 100 MG TABLET PO (08:04)
[2018-03-05] MEDS: LISINOPRIL 10 MG TABLET PO (08:04)
[2018-03-05] MEDS: VENLAFAXINE ER 75 MG CAP PO (08:05)
[2018-03-05] MEDS: FERROUS SULFATE 325 MG TABLET PO (08:05)
[2018-03-05] MEDS: ASPIRIN EC 81 MG TABLET PO (08:05)
[2018-03-05] MEDS: CELECOXIB 200 MG CAPSULE PO ×2 (08:08→20:26)
[2018-03-05] MEDS: DOCUSATE 100 MG CAPSULE PO ×2 (08:09→20:25)
[2018-03-05] MEDS: ASCORBIC ACID 500 MG TABLET PO (08:09)
[2018-03-05] MEDS: hydrOXYzine pamoate 25 MG CAPSULE PO (08:11)
[2018-03-05] MEDS: INSULIN DETEMIR 100 UNIT/ML INSULN.PEN 26 UNIT SUBCUT (08:18)
[2018-03-05] MEDS: INSULIN ASPART 100 UNIT/ML INSULN PEN SUBCUT ×4 (08:19→16:45)
[2018-03-05] MEDS: OXYCODONE/ACETAMINOPHEN 5/325 TABLET 2 TAB PO (09:12)
[2018-03-05] MEDS: HYDROMORPHONE 0.5 MG INJ 0.2 MG IV ×3 (09:45→16:39)
--- NOTE | 2018-03-05 10:57 | PT.OTN ---
Pt refused d/t high pain. RN suggested PM as pt has had a difficult morning d/t pain. He has gotten up to walk to the bathroom and has been repositioned and given ice. Follow up in PM. Current Diagnoses Spinal stenosis, lumbar region without neurogenic claudication (03/03/18) Spinal stenosis, lumbar region with neurogenic claudication (03/03/18) Radiculopathy, lumbosacral region (03/03/18) Other specified postprocedural states (03/03/18)
--- NOTE | 2018-03-05 13:24 | PC.NURSE ---
patient arrived to room 225. oriented to room and call light. States his pain is improved and he is now tolerating 6/10 pain. dressings intact. OT in to work with patient at this time. at bedside. call light within reach and bed or chair alarm for safety.
--- NOTE | 2018-03-05 13:49 | OT.IP.TRT ---
Current Diagnoses Spinal stenosis, lumbar region without neurogenic claudication (03/03/18) Spinal stenosis, lumbar region with neurogenic claudication (03/03/18) Radiculopathy, lumbosacral region (03/03/18) Other specified postprocedural states (03/03/18) Surgery Performed Operation Date: 03/03/18 07:45 Actual Procedures p L4-L5, L5-S1 revision laminectomies, L3-S1 anterior/ posterior instrumented fusion with bone graft - Ravi Starkey MD Occupational Therapy Treatment Note M2 OT-IP Current Condition Start: 03/04/18 15:32 Freq: Status: Active Protocol: Document 03/04/18 15:32 PJM (Rec: 03/04/18 15:52 PJM [id number]) Occupational Therapy Current Condition Current Condition Evaluation Date 03/04/18 Treatment Diagnosis decreased self care, functional mobility s/p multi level lumbar fusion Post Operative Precautions Lumbar Precautions Log Roll No Twisting Limit Bending Lifting Restriction of 10 lbs Gait Belt above Incisional Area M3 OT- IP Subjective and Pain Start: 03/04/18 15:32 Freq: Status: Active Protocol: Document 03/05/18 13:49 PJM (Rec: 03/05/18 14:18 PJM [id number]) OT- Subjective Occupational Therapy Visit Type Type Treatment Note Visit Start Time 13:10 Visit Stop Time 13:49 Total Visit Minutes 39 Notes Pt just moved up to floor from ICU. present in room for education. Pt in bathroom when therapist arrived. Occupational Therapy Visit Comments Patient Comments Do I keep this overnight? pointing to his walker. OT Pain Assessment Pain When Pain Assessed After Treatment Pain Present Pain Present Pain Reported Location back Intensity 6 Scale Used Numeric (1 - 10) Description Aching Pain Behaviors Facial Grimacing Guarding Management Techniques Re-positioning Timing of Activity with Medications M4 OT- IP ADL's Start: 03/04/18 15:32 Freq: Status: Active Protocol: Document 03/05/18 13:49 PJM (Rec: 03/05/18 14:18 PJM [id number]) OT ADL-Grooming Comments OT Grooming Comments Pt declined face washing this session. OT ADL-Oral Care General Eval Oral Care Ability Standby Assistance Areas of Assistance Brushing Teeth Devices Oral Care Devices Toothbrush Comments Oral Care Comments Provided education to pt/ re: body mechanics to avoid forward bending. Pt needs min cues to stand upright. OT ADL-Dressing General Eval Lower Body Dressing Ability Minimal Assistance Areas Needing Assistance Socks Assistive Devices Dressing Assistive Devices Clean In Places Operator Sock Aid Comments OT Dressing Comments Pt needs min verbal cues to doff socks with rivers and lakes boatman and mod verbal cues to don socks with sock aid. Provided rivers and lakes boatman and sock aid to pt/ at their request. OT ADL-Toileting General Evaluation Toileting Ability Standby Assistance Devices Toileting Assistive Devices Raised Toilet Seat Comments OT Toileting Comments Provided education re: body mechanics and options for increasing seat height of standard toilet at home if needed. Pt declines need for toilet paper aid. M5 OT- IP IADL's Start: 03/04/18 15:32 Freq: Status: Active Protocol: Document 03/04/18 15:32 PJM (Rec: 03/04/18 15:52 PJ [id number]) OT-Instrumental Activities of Daily Living Deficits IADL Deficits Identified Deficits Home Safety Awareness Awareness of Need for Assistance at Home Good Awareness Medication Management Medication Management Caregiver Provides Supervision Meal Preparation Meal Preparation Caregiver Provides Assist Cloth Examiner Machine Cloth Examiner Machine Caregiver Provides Assist Driving Driving Caregiver Provides Assist M6 OT- IP Functional Cognition Start: 03/04/18 15:32 Freq: Status: Active Protocol: Document 03/05/18 13:49 PJM (Rec: 03/05/18 14:18 [facility] [id number]) Cognitive Factors Limiting Selfcare Function Cognitive Ability Level of Alertness Confusional State Ability to Follow Commands Able to Follow One Step Commands Memory Description Short Term Impaired Safety Awareness Decreased Ability to Apply Precautions Underestimates Need for Assistance Cognitive Comments Cognitive Assessment Comments Pt appears mildly confused with slowed speed of processing noted; requiring repetition of new information. reports pt has good memory and cognition at baseline. Per RN, pt is on high doses of pain meds at present. Pt currently needs close supervision for safety. M7 OT- IP Mobility and Balance Start: 03/04/18 15:32 Freq: Status: Active Protocol: Document 03/05/18 13:49 PJM (Rec: 03/05/18 14:18 PJ [id number]) OT- Bed Mobility Assessment Rolling Type of Rolling Log Rolling Level of Assistance Standby Assistance Sit to Supine Sit to Supine Assist Contact Guard Assistance OT-Transfer Assessment Sit to and From Stand Sit to and from Stand Contact Guard Assistance Transfers Transfer Ability Minimal Assistance Technique Transfer Destination Bed Toilet Transfer Technique Stand Step Pivot Devices Transfer Assistive Devices Gait Belt Front Wheeled Walker Comments Mobility Comments Pt mildly impulsive; needs min verbal cues for log rolling technique and min- assist to get BLE's onto bed. OT- Gait Assessment Gait Gait Assistance Required: Contact Guard Assist Distance (Feet) (feet) 25 Assistive Devices Assistive Device Gait Belt Front Wheeled Walker OT- Balance Assessment Sitting Balance and Reactions Static Sitting Balance Ability Good Dynamic Sitting Balance Ability Good Standing Balance and Reactions Static Standing Balance Ability Fair Dynamic Standing Balance Ability Fair M8 OT- IP Objective Assessments Start: 03/04/18 15:32 Freq: Status: Active Protocol: Document 03/04/18 15:32 PJM (Rec: 03/04/18 15:52 PJM [id number]) OT Gross Range of Motion Upper Extremity Range of Motion Assessment Within Functional Limits OT Strength Upper Extremity Strength Assessment Within Functional Limits OT- Coordination Assessment Comments Coordination Comments BUE WFL OT-Muscle Tone Assessment Muscle Tone WNL Yes OT Sensation Assessment Comments Summary Comments Pt denies deficits in BUE's M9 OT- IP Assessment and Plan Start: 03/04/18 15:32 Freq: Status: Active Protocol: Document 03/05/18 13:49 PJM (Rec: 03/05/18 14:18 PJM [id number]) OT Summary Assessment and Plan Potential Rehabilitation Potential Good Summary OT Impairments Pain Balance Functional Cognition Dressing Toileting Bathing Toilet Transfers Shower Transfers Progress Towards Goals Progressing Toward Goals Assessment Summary Pt presents with improved functional mobility and independence in basic self care skills but appears over sedated from pain meds. Discussed with RN. Pt will benefit from 1 additional OT visit for further practice with self care skills within lumbar spine precautions. Supportive can provide 24 hr assist at d/c and verbalizes understanding of all education. Frequency of Treatment Frequency Of Treatment Once a Day Treatment Plan OT Treatment Plan ADL Training Functional Mobility Patient/Family Education Discharge Planning Discharge Recommendations OT Discharge Recommendations Home with 24/7 Assist Home Equipment Needs rivers and lakes boatman, long bath sponge and sock aid provided at pt's request
--- NOTE | 2018-03-05 14:26 | PC.NURSE ---
Am shift Pt has struggled with pain control this shift. Using Oxycodone every 3 hours and vistaril, has required IV Dilaudid x2. Pt is floor care and will be moved into room 225, report given to Shaun FUORNIER with goal of pain manegement and d/c in AM if able.
--- NOTE | 2018-03-05 15:25 | PT.IPTN ---
Current Diagnoses Spinal stenosis, lumbar region without neurogenic claudication (03/03/18) Spinal stenosis, lumbar region with neurogenic claudication (03/03/18) Radiculopathy, lumbosacral region (03/03/18) Other specified postprocedural states (03/03/18) Surgery Performed Operation Date: 03/03/18 07:45 Actual Procedures p L4-L5, L5-S1 revision laminectomies, L3-S1 anterior/ posterior instrumented fusion with bone graft - Ravi Starkey MD Physical Therapy Treatment Note M2 PT-IP Current Condition Start: 03/04/18 11:28 Freq: NEEDED Status: Active Protocol: Document 03/04/18 11:30 AB (Rec: 03/04/18 11:44 AB [id number]) Physical Therapy Current Condition Current Condition Evaluation Date 03/04/18 Treatment Diagnosis s/p revision laminectomy and TLIF; difficulty in walking Onset Date 03/03/18 Precautions Lumbar Precautions Log Roll No Twisting Limit Bending Lifting Restriction of 10 lbs Gait Belt above Incisional Area M3 PT-IP Subjective Start: 03/04/18 11:28 Freq: NEEDED Status: Active Protocol: Document 03/05/18 15:25 GGD (Rec: 03/05/18 16:46 GGD [id number]) Subjective Physical Therapy Visit Type Type Treatment Note Visit Start Time 15:05 Visit Stop Time 15:25 Total Visit Minutes 20 Number of DIRECTOR SPECIALTY Visits 1 Physical Therapy Visit Comments Patient Comments Pt wants to walk. Therapy Pain Assessment Pain When Pain Assessed At Rest Pain Present Pain Present Pain Reported Location back Intensity 6 Scale Used Numeric (1 - 10) Pain Management Techniques Re-positioning Timing of Activity with Medications M4 PT-IP Mobility and Gait Start: 03/04/18 11:28 Freq: NEEDED Status: Active Protocol: Document 03/05/18 15:25 GGD (Rec: 03/05/18 16:46 GGD [id number]) PT-Transfer Assessment Sit to and From Stand Sit to and from Stand Contact Guard Assistance Use of Upper Extremities Equipment Transfer Assistive Device Gait Belt Front Wheeled Walker Gait Assessment Gait Gait Assistance Required: Contact Guard Assist 1 Person Assist Distance (Feet) (feet) 140 Assistive Devices Assistive Device Gait Belt Front Wheeled Walker Orthotic/Prosthetic Devices or Brace: No Gait Deviations General Gait Pattern Decreased Stride Length Decreased Feet Clearance Factors Limiting Gait Function Factors Limiting Gait Function Decreased Activity Tolerance Decreased Strength Pain Poor Balance Poor Safety Awareness Document 03/05/18 15:25 GGD (Rec: 03/05/18 16:46 GGD [id number]) Physical Therapy Treatment Education Education Provided Precautions Safety M7 PT-IP Assessment and Plan Start: 03/04/18 11:28 Freq: NEEDED Status: Active Protocol: Document 03/05/18 15:25 GGD (Rec: 03/05/18 16:46 GGD [id number]) PT Summary Assessment and Plan Summary Assessment Summary Pt improved with mobility and gait distance. He was mild unsteady, but no LOB. He need cues for mobility. Frequency of Treatment Frequency Of Treatment Twice a Day Treatment Plan Other Recommendations and Next Treatment ambulation, bed mobility, Focus caregiver training, stair training with one rail Recommendations To Nursing Amount of Assist Needed 1 Person Assist Discharge Recommendations PT Discharge Recommendations Home with Assistance Equipment Needed for Home Before will need FWW at D/C Discharge
[2018-03-05] MEDS: INSULIN DETEMIR 100 UNIT/ML INSULN.PEN 36 UNIT SUBCUT (16:45)
[2018-03-05] MEDS: SENNOSIDES 8.6 MG TABLET 17.2 MG PO (20:25)
[2018-03-05] MEDS: TRAZODONE 50 MG TABLET 25 MG PO (20:25)
[2018-03-06] VITALS: BP 151/80; PULSE 82; RESP 16; TEMP 36.4; O2SAT 98
[2018-03-06] MEDS: OXYCODONE IR 10 MG TABLET PO ×4 (00:29→12:38)
[2018-03-06] MEDS: HYDROMORPHONE 0.5 MG INJ 0.2 MG IV (01:34)
[2018-03-06 02:13] VITALS: BP 152/88; PULSE 87; RESP 18; TEMP 36.6; O2SAT 98
[2018-03-06] MEDS: MAGNESIUM HYDROXIDE 30 ML UDC PO (02:31)
[2018-03-06] MEDS: hydrOXYzine pamoate 25 MG CAPSULE PO ×2 (02:31→03:00)
--- NOTE | 2018-03-06 03:10 | PC.NURSE ---
0130 pt awoke w/sudden, intense, pain to L groin area spreading internally,pt rated 12/10 and was curled up grimacing and tightly holding his 's hand w/occ moaning. stated I've never had pain like this before. had been previously medicated w/10mg of oxycodone at 0030 for back and L hip (donor site) area pain that had been rated 9/10. pt had been assisted to position onto R side with ice pack applied, pillow to support back and between knees. attempted to reposition to back but pain in Lgroin area incr'd and pt stated on my side was better. pt then requested to get out of bed to go to the br.amb w/gait belt ,fww w/2 sba,steady on his feet,no reports of feeling dizzy/nauseated. pt was able to void but no stool. stated last BM was on Friday prior to surgery,pt had been taking the scheduled stool softners but no mom. 0135 medicated w/ 0.2mg iv dilaudid for pain 12/10 cont'd in L groin area. pt sitting in recliner after br attempt, pain had decr'd to 9/10. [address] Holloway who was wood barrel reconditioner; relayed above info with orders to start miralax daily tomorrow. if pain incr'd give oxycodone 10mg early(next avail at 0330). if pain conts incr'd give prn 0.2mg iv dilaudid. also try prn vistaril as ordered. pt given 25mg of vistaril po, also took 30ml mom and 40z prune juice.
[2018-03-06 05:41] VITALS: BP 148/83; PULSE 77; RESP 18; TEMP 36.4
[2018-03-06 08:08] VITALS: BP 134/71; PULSE 82
[2018-03-06] MEDS: VENLAFAXINE ER 75 MG CAP PO (08:08)
[2018-03-06] MEDS: METFORMIN XR 500 MG TABLET PO (08:08)
[2018-03-06] MEDS: LISINOPRIL 10 MG TABLET PO (08:08)
[2018-03-06] MEDS: ASCORBIC ACID 500 MG TABLET PO (08:08)
[2018-03-06] MEDS: ALLOPURINOL 100 MG TABLET PO (08:08)
[2018-03-06] MEDS: ASPIRIN EC 81 MG TABLET PO (08:08)
[2018-03-06] MEDS: POLYETHYLENE GLYCOL 3350 17 GM POWD.PACK PO (08:10)
[2018-03-06] MEDS: FERROUS SULFATE 325 MG TABLET PO (08:10)
[2018-03-06] MEDS: CELECOXIB 200 MG CAPSULE PO (08:11)
[2018-03-06] MEDS: DOCUSATE 100 MG CAPSULE PO (08:11)
[2018-03-06] MEDS: INSULIN DETEMIR 100 UNIT/ML INSULN.PEN 26 UNIT SUBCUT (08:12)
[2018-03-06] MEDS: INSULIN ASPART 100 UNIT/ML INSULN PEN SUBCUT (08:13)
[2018-03-06 08:54] VITALS: BP 134/71; PULSE 82; RESP 16; TEMP 36.7; O2SAT 98
--- NOTE | 2018-03-06 09:50 | PT.IPTN ---
Current Diagnoses Spinal stenosis, lumbar region without neurogenic claudication (03/03/18) Spinal stenosis, lumbar region with neurogenic claudication (03/03/18) Radiculopathy, lumbosacral region (03/03/18) Other specified postprocedural states (03/03/18) Surgery Performed Operation Date: 03/03/18 07:45 Actual Procedures p L4-L5, L5-S1 revision laminectomies, L3-S1 anterior/ posterior instrumented fusion with bone graft - Ravi Starkey MD Physical Therapy Treatment Note M2 PT-IP Current Condition Start: 03/04/18 11:28 Freq: NEEDED Status: Active Protocol: Document 03/04/18 11:30 AB (Rec: 03/04/18 11:44 AB [id number]) Physical Therapy Current Condition Current Condition Evaluation Date 03/04/18 Treatment Diagnosis s/p revision laminectomy and TLIF; difficulty in walking Onset Date 03/03/18 Precautions Lumbar Precautions Log Roll No Twisting Limit Bending Lifting Restriction of 10 lbs Gait Belt above Incisional Area M3 PT-IP Subjective Start: 03/04/18 11:28 Freq: NEEDED Status: Active Protocol: Document 03/06/18 09:50 GGD (Rec: 03/06/18 12:04 GGD [id number]) Subjective Physical Therapy Visit Type Type Treatment Note Visit Start Time 09:10 Visit Stop Time 09:50 Total Visit Minutes 40 Number of [employer]NATIONAL F[employer]IGHT FORWARDER Visits 2 Physical Therapy Visit Comments Patient Comments Pt feeling better. Therapy Pain Assessment Pain When Pain Assessed At Rest Pain Present Pain Present Pain Reported Location back Intensity 2 Scale Used Numeric (1 - 10) Pain Management Techniques Timing of Activity with Medications M4 PT-IP Mobility and Gait Start: 03/04/18 11:28 Freq: NEEDED Status: Active Protocol: Document 03/06/18 09:50 GGD (Rec: 03/06/18 12:04 GGD [id number]) PT-Transfer Assessment Sit to and From Stand Sit to and from Stand Contact Guard Assistance Use of Upper Extremities Equipment Transfer Assistive Device Gait Belt Front Wheeled Walker Gait Assessment Gait Gait Assistance Required: Contact Guard Assist 1 Person Assist Distance (Feet) (feet) 270 Assistive Devices Assistive Device Gait Belt Front Wheeled Walker Orthotic/Prosthetic Devices or Brace: No Gait Deviations General Gait Pattern Decreased Stride Length Decreased Feet Clearance Factors Limiting Gait Function Factors Limiting Gait Function Decreased Activity Tolerance Decreased Strength Pain Stair Climbing Assessment Evaluation Level of Assist On Stairs Contact Guard Assistance Devices Stair Climbing Assistive Devices Left Railing Technique/Endurance Stair Climbing Direction Ascend and Descend Stair Climbing Technique Step Over Step Number of Steps Climbed 3 Query Text: Stair Climbing Set # Repetitions (reps) 2 M5 PT-IP Objective Assessments Start: 03/04/18 11:28 Freq: NEEDED Status: Active Protocol: Document 03/04/18 11:30 AB (Rec: 03/04/18 11:44 AB [id number]) Orientation Orientation/Cognition Level of Alertness Alert Orientation Name Age Place Situation Safety Awareness Decreased Safety Awareness Gross Range of Motion Lower Extremity ROM Assessment Within Functional Limits Strength Lower Extremity Strength Assessment Bilaterally Impaired Hip 4-/5 Knee 4-/5 Ankle 5/5 M6 PT-IP Treatment Start: 03/04/18 11:28 Freq: NEEDED Status: Active Protocol: Document 03/06/18 09:50 GGD (Rec: 03/06/18 12:04 GGD [id number]) Physical Therapy Treatment Education Education Provided Precautions Safety Other Treatments Other Treatment Performed Issue FWW for D/C M7 PT-IP Assessment and Plan Start: 03/04/18 11:28 Freq: NEEDED Status: Active Protocol: Document 03/06/18 09:50 GGD (Rec: 03/06/18 12:04 GGD [id number]) PT Summary Assessment and Plan Summary Assessment Summary Pt improved with mobility. He need decrease assist. He had no LOB or unsteadiness with gait or stairs. Frequency of Treatment Frequency Of Treatment Twice a Day Treatment Plan Other Recommendations and Next Treatment ambulation, bed mobility, Focus caregiver training, stair training with one rail Recommendations To Nursing Amount of Assist Needed 1 Person Assist Discharge Recommendations PT Discharge Recommendations Home with Assistance
--- NOTE | 2018-03-06 10:04 | P.DS_ITS ---
History of Present Illness Date Patient Seen: 03/06/18 Time Patient Seen: 09:57 Chief complaint: [id number] Narrative: Patient is a 77-year-old male with history of low back pain with severe pain running down the left leg. He also has left leg weakness. Pain is limiting his ability to walk and activities of daily living. He has tried conservative measures and elected to proceed with surgical intervention by Dr. Starkey. Discharge Providers Date of admission: 03/03/18 06:29 Primary care physician: Kyleigh Burrell MD Consults: 03/03/18 16:49 Consult to Occupational Therapy Evaluate & Treat Comment: Physician Instructions: Evaluate and treat Consult to Physical Therapy Evaluate & Treat Comment: Physician Instructions: Evaluate and Treat Discharge provider: Amber Botello PA-C Summary Discharge Diagnosis: Lumbar stenosis with radiculopathy History of lumbar laminectomy Hospital Course: Patient was admitted and taken the operating room where he had revision laminectomies and lumbar fusion by Dr. Starkey. He was transferred to the ICU due to pain control issues and over-sedation in the recovery room. By postop day 2 his pain was better controlled and he was transferred to the hospital floor. Postop day 3 patient is was ambulating well, no issues with urinating, and pain was under control. He was ready for discharge home. Status at Discharge Cognitive/behavioral status at discharge: Alert and orient x3 Functional status at discharge: uses cane/walker Overall status at discharge: patient is progressing back to baseline Time Spent with Patient Less than 30 minutes Exam Vital Signs (past 8 hours): Vital Signs - 8 hr 3 03/06/18 02:13 03/06/18 05:41 03/06/18 08:08 Temperature 97.8 F 97.6 F Pulse Rate 87 77 82 Respiratory Rate 18 18 Blood Pressure 152/88 H 148/83 H 134/71 H Pulse Oximetry 98 3 03/06/18 08:54 Temperature 98.0 F Pulse Rate 82 Respiratory Rate 16 Blood Pressure 134/71 H Pulse Oximetry 98 Pulse Oximetry 98 Oxygen Delivery Method Room Air Oxygen Flow Rate 0 Narrative Exam Narrative: Patient is sitting in chair. Alert and orient x3. Vac dressings clean dry and intact. Bilateral calves soft and nontender. 5/5 bilateral lower extremity strength. Neurovascular status intact. Objective Labs Result Diagrams: 03/04/18 04:35 03/04/18 04:35 Discharge Plan Discharge Plan Patient Disposition: Home, Self-Care Discharge comment: Oxycodone 10 mg as needed for pain. Hydromorphone 2 mg as needed for severe pain. Discharge Med Rec/Prescriptions Prescriptions: New hydromorphone 2 mg Tablet 2 mg PO Q4HR PRN (Reason: Severe Pain) Qty: 20 RF: 0 hydroxyzine pamoate 25 mg Capsule 50 mg PO Q6H PRN (Reason: Nausea And Vomiting) Qty: 40 RF: 0 oxycodone 10 mg Tablet 10 mg PO Q4H PRN (Reason: Pain, Severe) Qty: 60 RF: 0 Continue insulin detemir U-100 [Levemir FlexTouch U-100 Insuln] 100 unit/mL (3 mL) Insulin Pen 26 unit SUB-Q QAM Qty: 0 RF: 0 venlafaxine [Effexor XR] 75 MG capsule,extended release 24hr 75 mg PO QAM Qty: 0 RF: 0 metformin [Glucophage XR] 500 MG tablet extended release 24 hr 500 mg PO TID Qty: 0 RF: 0 testosterone [AndroGel] 75 GM gel in metered-dose pump 1.62 % Topical Q DAY Qty: 0 RF: 0 trazodone 50 mg Tablet 25 mg PO BEDTIME RF: 0 allopurinol 100 mg Tablet 100 mg PO DAILY RF: 0 aspirin 81 mg Tablet,Delayed Release (Dr/Ec) 81 mg PO DAILY RF: 0 lisinopril 10 mg Tablet 10 mg PO DAILY RF: 0 insulin detemir U-100 [Levemir FlexTouch U-100 Insuln] 100 unit/mL (3 mL) Insulin Pen 36 unit SUB-Q QPM RF: 0 colchicine 0.6 mg Capsule 0.6 mg PO DAILY PRN (Reason: gout attack) RF: 0 ascorbic acid (vitamin C) [Vitamin C] 500 mg Tablet 500 mg PO DAILY RF: 0 ferrous sulfate [Iron (ferrous sulfate)] 325 mg (65 mg iron) Tablet 325 mg PO DAILY RF: 0 insulin lispro [Humalog KwikPen Insulin] 100 unit/mL Insulin Pen 16 unit SUB-Q TID RF: 0 Discontinued oxycodone-acetaminophen [Percocet] 5-325 mg Tablet 1 tab PO Q4-6H PRN (Reason: pain) RF: 0 Follow up/Referrals: Ravi Starkey MD [Physician] - (Follow-up at scheduled visit in 10-14 days. Contact office with any issues or concerns.) Provider Discharge Instructions Diet: Carb-consistent/Diabetic Activity: Activity as tolerated. No lifting bending or twisting. Wound Care Report to your healthcare provider any signs of infection, such as:: chills, fever, increased pain and unusual drainage Dressing: Keep dressing clean and dry and intact. May shower. Visit Report/Discharge Packet Instructions: DI for Transforaminal Lumbar Interbody Fusion Discharge Data Primary Care Provider: Kyleigh Burrell Attending Provider: Ravi Starkey Admit Date/Time: 03/03/18 06:29 Quality VTE Deep Vein Thrombosis/Pulmonary Embolism Present on Admission: No
--- NOTE | 2018-03-06 11:54 | CM.DPNOTE ---
DC Note: DC order to home in place today. Met w/pt and his at bedside; both agree pt doing really well and both are ready to return home. PT agrees pt okay to return home w/spouse to assist and outpt PT. MORTEZAW
[2018-03-06 12:00] VITALS: BP 130/74; PULSE 75; RESP 16; TEMP 36.7; O2SAT 99
--- NOTE | 2018-03-06 12:00 | PC.NURSE ---
Pt ready for discharge home with Spouse. Pt dressing was changed to a Coversite, incision is intact. Discussed d/c meds, time of last dose, follow up and s/s of infection. Pt and spouse were given a ferry pass for [place]. Both denied further questions and are ready to be discharged home when they finish lunch.
--- NOTE | 2018-03-06 16:47 | OT.IP.TRT ---
Current Diagnoses Spinal stenosis, lumbar region without neurogenic claudication (03/03/18) Spinal stenosis, lumbar region with neurogenic claudication (03/03/18) Radiculopathy, lumbosacral region (03/03/18) Other specified postprocedural states (03/03/18) Surgery Performed Operation Date: 03/03/18 07:45 Actual Procedures p L4-L5, L5-S1 revision laminectomies, L3-S1 anterior/ posterior instrumented fusion with bone graft - Ravi Starkey MD Occupational Therapy Treatment Note M3 OT- IP Subjective and Pain Start: 03/04/18 15:32 Freq: Status: Active Protocol: Document 03/06/18 16:40 PJM (Rec: 03/06/18 16:47 PJM [id number]) OT- Subjective Occupational Therapy Visit Type Type Treatment Note Visit Start Time 11:35 Visit Stop Time 11:49 Total Visit Minutes 14 Notes here for education. Occupational Therapy Visit Comments Patient Comments 'I am feeling better today. [place] OT Pain Assessment Pain When Pain Assessed After Treatment Pain Present Pain Present Pain Reported Location back Intensity 4 Scale Used Numeric (1 - 10) Description Aching Pain Behaviors Guarding M4 OT- IP ADL's Start: 03/04/18 15:32 Freq: Status: Active Protocol: Document 03/06/18 16:40 PJM (Rec: 03/06/18 16:47 PJM [id number]) OT ADL-Dressing Comments OT Dressing Comments Pt declines to dress in street clothes until closer to d/c. and pt verbalize understanding of adaptive equipt use. OT ADL-Bathing Comments OT Bathing Comments pt declines to shower here M6 OT- IP Functional Cognition Start: 03/04/18 15:32 Freq: Status: Active Protocol: Document 03/06/18 16:40 PJM (Rec: 03/06/18 16:47 PJM [id number]) Cognitive Factors Limiting Selfcare Function Cognitive Ability Level of Alertness Alert Attention Span Ability Capable of Focused Attention Capable of Sustained Attention Ability to Follow Commands Able to Follow One Step Commands Cognitive Comments Cognitive Assessment Comments Pt much more alert today and verbalizes understanding of precautions and adapted ADL techniques. He still needs occasional cues to follow precautions during functional mobility. can cue pt. M7 OT- IP Mobility and Balance Start: 03/04/18 15:32 Freq: Status: Active Protocol: Document 03/06/18 16:40 PJM (Rec: 03/06/18 16:47 [facility] [id number]) OT- Bed Mobility Assessment Rolling Type of Rolling Log Rolling Level of Assistance Standby Assistance Supine to Sit Supine to Sit Assist Standby Assistance OT-Transfer Assessment Sit to and From Stand Sit to and from Stand Standby Assistance Transfers Transfer Ability Standby Assistance Technique Transfer Destination Chair Transfer Technique Stand Step Pivot Devices Transfer Assistive Devices Front Wheeled Walker Comments Mobility Comments CGA for balance while RN changing surgical dressing while standing with FWW. Pt ambulated around bed with close SBA with FWW. Provided education to pt/ re: car transfers. OT- Gait Assessment Gait Gait Assistance Required: Standby Assistance Distance (Feet) (feet) 15 Assistive Devices Assistive Device Front Wheeled Walker Comments Gait Ability Comments no LOB noted OT- Balance Assessment Sitting Balance and Reactions Static Sitting Balance Ability Good Dynamic Sitting Balance Ability Good Standing Balance and Reactions Static Standing Balance Ability Good Dynamic Standing Balance Ability Fair M9 OT- IP Assessment and Plan Start: 03/04/18 15:32 Freq: Status: Active Protocol: Document 03/06/18 16:40 PJ (Rec: 03/06/18 16:47 [facility] [id number]) OT Summary Assessment and Plan Potential Rehabilitation Potential Good Summary Progress Towards Goals Goals Met Assessment Summary Pt presents with much improved alertness and functional cognition today. All OT education completed with pt/ and they verbalize understanding. Treatment Plan Other Treatment Recommendations and Next No further OT services needed. Treatment Focus Discharge Recommendations OT Discharge Recommendations Home with 24/7 Assist Home Equipment Needs pt has all equipt
== END 2018-03-06 12:42 | disposition home or self-care (01) | DRG 455 ==
LOC: AC 10:48 → ICU 16:58 → AC 03-05 13:21
PROVIDERS: Admitting Provider Orthopaedic Surgery; Family Provider Family Medicine; PCP Family Medicine; Visit Provider Orthopaedic Surgery
PROC: 0SG10A0 Fusion of 2 or more Lumbar Vertebral Joints with Interbody Fusion Device, Anterior Approach, Anterior Column, Open Approach (ICD-10-PCS; principal; 2018-03-03 07:45)
DX: M48.061 Spinal stenosis, lumbar region without neurogenic claudication (principal); M99.73 Connective tissue and disc stenosis of intervertebral foramina of lumbar region; M48.07 Spinal stenosis, lumbosacral region; E11.9 Type 2 diabetes mellitus without complications; J45.909 Unspecified asthma, uncomplicated; Z79.4 Long term (current) use of insulin; F41.9 Anxiety disorder, unspecified; M10.9 Gout, unspecified; M96.1 Postlaminectomy syndrome, not elsewhere classified; R41.0 Disorientation, unspecified; T41.205A Adverse effect of unspecified general anesthetics, initial encounter
CPT/HCPCS: 36415; 72100; 76001; 80048; 82962; 85014; 85018; 97116; 97162; 97165; 97530; 97535; C1776; J0330; J0595; J0690; J1170; J2274; J2405; J2704; J3010

== ENCOUNTER → 2018-11-26 12:06 | Outpatient (CLI) | payer MEDICARE, SELFPAY ==
[2018-03-03 17:19] VITALS: BMI 25.1
--- NOTE | 2018-11-26 | DI.MRI.S_ITS ---
PROCEDURE: MR LUMBAR SPINE WO/W CON INDICATIONS: PAIN IN LEFT HIP Spinal stenosis, lumbar region TECHNIQUE: Noncontrast sagittal T1 spin echo and T2 fast spin echo, sagittal STIR, axial T1 and T2 fast spin echo through the lumbar spine. In cases with scoliosis, additional coronal T2 fast spin echo may be performed. After the administration of contrast, sagittal and axial T1 spin echo with fat saturation through the lumbar spine. COMPARISON: [facility], CR, SPINE LUMB 1VW, 10/11/2014, 14:06. [facility], MR, L-SPINE WITHOUT CONTRAST, 06/18/2017, 10:47. [facility], CT, L-SPINE WITHOUT CONTRAST, 12/18/2017, 9:49. [facility] [place], CR, XR LUMBAR SPINE 2 OR 3 VIEWS, 05/27/2018, 9:57. [facility], CR, XR LUMBAR SPINE WITH OBLIQUES, 10/06/2018, 12:25. FINDINGS: Image quality: Excellent. Alignment and curvature: There is grade 1 retrolisthesis of L4-L5. Marrow: Degenerative endplate signal changes are present at L3, L4 and L5. No acute vertebral body compression fractures. No suspicious marrow enhancement. Spinal cord: Conus medullaris terminates at the T12-L1 level. Visualized spinal cord demonstrates normal signal, without suspicious enhancement. Paraspinous soft tissues: No paravertebral masses or abnormal enhancement. Bilateral renal cysts. L1-L2: Preserved disc height. Mild disc desiccation. There is posterior disc bulge. The central canal is mildly narrowed. No foraminal stenosis. L2-L3: Preserved disc height. Mild disc desiccation. There is posterior disc bulge. The central canal is mildly narrowed. No foraminal stenosis. L3-L4: Discectomy left hemilaminectomy and posterior fusion. Postsurgical changes partially obscured area. There is posterior osteophyte. Moderate central canal stenosis. Mild bilateral foraminal stenosis. L4-L5: Discectomy left hemilaminectomy and posterior fusion. Postsurgical changes partially obscured area. There is posterior osteophyte. Mild central canal stenosis. Moderate bilateral foraminal stenosis. L5-S1: Discectomy left hemilaminectomy and posterior fusion. Postsurgical changes partially obscured area. There is posterior osteophyte. Severe bilateral facet arthropathy. Mild central canal stenosis. [id number] bilateral foraminal stenosis. IMPRESSION: 1. Multilevel degenerative and postsurgical changes as described. 2. Moderate central canal stenosis at L3-L4 and mild central canal stenosis at L1-L2, L2-- L3, L4-L5 and L5-S1. 3. Multilevel foraminal stenosis as described. Dictated by: Eneida Mena M.D. on 11/26/2018 at 16:48 Approved by: Eneida Mena M.D. on 11/26/2018 at 18:20
--- NOTE | 2018-11-26 | DI.MRI.S_ITS ---
PROCEDURE: MR HIP LT WO CON INDICATIONS: PAIN IN LEFT HIP Spinal stenosis, lumbar region TECHNIQUE: Noncontrast coronal T1 spin echo and STIR through the bony pelvis. Coronal and axial T2 fast spin echo with fat saturation, sagittal T1 spin echo, and oblique axial T2 fast spin echo with fat saturation through the hip. COMPARISON: [facility], , HIP COMP MIN 2VW (LT), 10/03/2014, 11:40. FINDINGS: Image quality: Excellent. Bones and joints: Mild periarticular osteophyte formation of the bilateral hip joints. Lumbar fusion hardware is present. Bone marrow of the pelvic ring and proximal femurs show normal signal throughout. No intraosseous lesions or fractures. No avascular necrosis of the femoral heads. The visualized lower lumbar spine appears normally aligned. Tendons and ligaments: The gluteus medius and minimus tendons appear intact, without associated muscle atrophy. There is mild T2 signal elevation at the femoral insertion sites of the bilateral gluteus medius and minimus tendons. The nearby proximal iliotibial band also appears intact. The iliopsoas tendon appears intact, without adjacent bursal fluid collections or evidence for impingement syndrome. The origin of the hamstring tendon is intact at the ischial tuberosity, as well as the associated sacrotuberous ligament. The straight and reflected heads of the rectus femoris muscle origin appear intact, as well as the conjoint tendon. The ligamentum teres appears intact where visualized. Labrum and cartilage: High T2 signal intensity within the left superolateral hip labrum. High T2-weighted signal intensity within the right superolateral and posterior labrum with a right para labral cyst measuring 20 mm. Cartilage surface of the femoral head appears of normal thickness. The alpha angle of the femur is within normal limits at less than 55 degrees. Soft tissues: Visualized muscles demonstrate normal bulk and internal signal. There is a 44 mm high T2 signal intensity focus within the right hip anteriorly adjacent to the sartorius muscle, which appears to be in communication with the para labral cyst arising from the right hip joint. Quadratus femoris muscle demonstrates no internal edema to suggest ischiofemoral impingement. The proximal sciatic neurovascular bundle appears normal adjacent to the hamstring tendons. No free pelvic fluid. Bladder wall thickness is normal. Genitourinary structures and bowel loops appear normal where visualized. IMPRESSION: 1. Bilateral hip osteoarthritis. 2. Bilateral hip labral tears. There is an associated right para labral cyst as well as a ganglion cyst within the anterior compartment of the right thigh along the sartorius. 3. Insertional tendinitis of the bilateral gluteus medius and minimus tendons Dictated by: Fer Ortiz M.D. on 11/26/2018 at 13:35 Approved by: Fer Ortiz M.D. on 11/26/2018 at 13:41
== END ==
PROVIDERS: Family Provider Family Medicine; PCP Family Medicine; Visit Provider Orthopaedic Surgery
DX: M48.062 Spinal stenosis, lumbar region with neurogenic claudication (principal); M47.817 Spondylosis without myelopathy or radiculopathy, lumbosacral region; M25.552 Pain in left hip; M16.0 Bilateral primary osteoarthritis of hip; S73.192A Other sprain of left hip, initial encounter; S73.191A Other sprain of right hip, initial encounter; M67.451 Ganglion, right hip; M76.02 Gluteal tendinitis, left hip; M76.01 Gluteal tendinitis, right hip; Z98.1 Arthrodesis status
CPT/HCPCS: 72158; 73721; A9579

== ENCOUNTER → 2020-02-17 13:26 | Outpatient (CLI) | payer MEDICARE, OTHER, SELFPAY ==
[2020-02-14 09:44] VITALS: BMI 25.1
--- NOTE | 2020-02-17 | DI.MRI.S_ITS ---
PROCEDURE: MR HIP LT WO CON INDICATIONS: Pain in left hip TECHNIQUE: Noncontrast coronal T1 spin echo and STIR through the bony pelvis. Coronal and axial T2 fast spin echo with fat saturation, sagittal T1 spin echo, and oblique axial T2 fast spin echo with fat saturation through the hip. COMPARISON: [facility], MR, MR HIP LT WO CON, 11/26/2018, 12:37. FINDINGS: Image quality: Excellent. Bones and joints: Left worse than right bilateral hip joint osteoarthritic changes are again noted with superior joint space narrowing and marginal osteophyte formation. No intraosseous lesions or fractures. No avascular necrosis of the femoral heads. Fusion hardware in visualized lower lumbar spine is again seen. Tendons and ligaments: Tendinosis and low-grade partial-thickness tear involving distal left gluteus medius and minimus tendons at their insertion on greater trochanter, without associated muscle atrophy. The nearby proximal iliotibial band also appears intact. The iliopsoas tendon appears intact, without adjacent bursal fluid collections or evidence for impingement syndrome. Fluid and soft tissue edema surrounding left hamstring tendon origins at their insertion on the ischial tuberosity is seen with edema extending to musculotendinous junction. The straight and reflected heads of the rectus femoris muscle origin appear intact, as well as the conjoint tendon. The ligamentum teres appears intact where visualized. Labrum and cartilage: Thinning of articulating cartilage along superior aspect of femoral head is seen. There is suggestion of superior anterior left hip labral tear in the absence of intra-articular contrast. The alpha angle of the femur is within normal limits at less than 55 degrees. Soft tissues: Visualized muscles demonstrate normal bulk and internal signal. Quadratus femoris muscle demonstrates no internal edema to suggest ischiofemoral impingement. The proximal sciatic neurovascular bundle appears normal adjacent to the hamstring tendons. No free pelvic fluid. Bladder wall thickness is normal. Genitourinary structures and bowel loops appear normal where visualized. IMPRESSION: 1. Tendinosis and moderate grade partial-thickness tear involving the hamstring tendon origins at their insertions on ischial tuberosity extending to musculotendinous junction. 2. Tendinosis and low to moderate grade partial-thickness tear involving left distal gluteus medius and minimus tendons at their insertion on greater trochanter. 3. Left worse than right bilateral hip joint osteoarthritis. No fracture or dislocation. No evidence of avascular necrosis of femoral head. 4. Suggestion of superior anterior left hip labral tear in the absence of intra-articular contrast. Dictated by: Meng West M.D. on 02/17/2020 at 16:15 Approved by: Meng West M.D. on 02/17/2020 at 16:53
== END ==
PROVIDERS: Family Provider Family Medicine; PCP Family Medicine; Referring Provider Orthopaedic Surgery; Visit Provider Orthopaedic Surgery
DX: M25.552 Pain in left hip (principal); M16.0 Bilateral primary osteoarthritis of hip; S76.312A Strain of muscle, fascia and tendon of the posterior muscle group at thigh level, left thigh, initial encounter
CPT/HCPCS: 73721